=== PATIENT | female | born 1965 | race Caucasian/White ===

== ENCOUNTER 2019-12-25 23:04 | Emergency (ER) | payer SELFPAY ==
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
[2019-12-25 23:14] VITALS: BP 142/63; PULSE 98; RESP 20; TEMP 36.2; O2SAT 98
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
--- NOTE | 2019-12-25 23:29 | PC.NURSE ---
Upon palpation of patient's neck and shoulders, patient extremely tender, refusing c-collar. Patient a/0x3. Patient aware of risks of not having a c-collar on, still refusing c-collar.
--- NOTE | 2019-12-25 23:51 | PC.NURSE ---
Patient being taken to CT. This nurse attempted to obtain an IV, and then patient stated she would like to have meds changed to IM route if possible. No IV obtained at this time. Will ask EDP per patient request.
[2019-12-26] MEDS: KETOROLAC (*BKC) 60 MG/2 ML VIAL IM
[2019-12-26] MEDS: MORPHINE SULFATE 2 MG/ML INJ IV PUSH (00:01)
[2019-12-26 01:28] VITALS: BP 137/92; PULSE 79; RESP 18; O2SAT 99
== END 2019-12-26 02:00 | disposition home or self-care (01) ==
PROVIDERS: Emergency Provider Emergency Medicine
DX: G44.209 Tension-type headache, unspecified, not intractable (principal); S16.1XXA Strain of muscle, fascia and tendon at neck level, initial encounter; M54.12 Radiculopathy, cervical region; E03.9 Hypothyroidism, unspecified; Z98.84 Bariatric surgery status; M25.78 Osteophyte, vertebrae; V49.50XA Passenger injured in collision with unspecified motor vehicles in traffic accident, initial encounter
CPT/HCPCS: 70450; 72125; 96372; 96374; 99284; J1885; J2270

== ENCOUNTER 2019-12-26 21:12 | Emergency (ER) | payer SELFPAY ==
[2019-12-26 21:15] VITALS: BP 155/85; PULSE 100; RESP 16; TEMP 36.3; O2SAT 100
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
[2019-12-26] MEDS: KETOROLAC (*BKC) 60 MG/2 ML VIAL IM (21:59)
[2019-12-26] MEDS: DIAZEPAM 5 MG TABLET PO (22:00)
[2019-12-26 22:31] VITALS: BP 146/87; PULSE 97; RESP 18; TEMP 37.2; O2SAT 100
== END 2019-12-26 22:40 | disposition home or self-care (01) ==
LOC: ANHED 21:56
PROVIDERS: Emergency Provider Emergency Medicine
DX: G44.209 Tension-type headache, unspecified, not intractable (principal); S16.1XXD Strain of muscle, fascia and tendon at neck level, subsequent encounter; V49.9XXD Car occupant (driver) (passenger) injured in unspecified traffic accident, subsequent encounter
CPT/HCPCS: 96372; 99283; A9270; J1885

== ENCOUNTER 2020-02-07 23:36 | Emergency (ER) | payer SELFPAY ==
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
[2020-02-07 23:39] VITALS: BP 134/97; PULSE 105; RESP 20; TEMP 36.3; O2SAT 100
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
[2020-02-08] MEDS: ACETAMINOPHEN 500 MG TABLET 1000 MG PO (00:42)
[2020-02-08 01:09] VITALS: BP 141/92; PULSE 86; RESP 16; TEMP 36.7; O2SAT 98
== END 2020-02-08 01:10 | disposition home or self-care (01) ==
PROVIDERS: Emergency Provider Emergency Medicine
DX: S80.02XA Contusion of left knee, initial encounter (principal); E03.9 Hypothyroidism, unspecified; W01.0XXA Fall on same level from slipping, tripping and stumbling without subsequent striking against object, initial encounter
CPT/HCPCS: 73562; 99283; A9270